=== PATIENT | male | born 1975 | race Caucasian/White ===

== ENCOUNTER 2022-03-06 08:00 | Outpatient (CLI) | payer OTHER ==
--- NOTE | 2022-03-06 11:00 | XRAY Report ---
PROCEDURE: Chest 2 View X-Ray INDICATIONS: ASTHMA EXACERBATION TECHNIQUE: 2 views of the chest. COMPARISON: None. FINDINGS: Surgical changes and devices: None. Lungs and pleura: No pleural effusions or pneumothorax. Lungs are mildly hyperexpanded and clear. Mediastinum: Mediastinal contours are normal. Heart size is normal. Bones and chest wall: No suspicious bony abnormalities. Soft tissues appear unremarkable. IMPRESSION: Lungs are mildly hyperexpanded, which can be seen in the setting of reactive airways dis ease. No acute consolidation.. Reviewed by: Severiano Harris MD on 03/06/2022 9:59 AM REED Approved by: Severiano Harris MD on 03/06/2022 9:59 AM REED Station ID: [id number]
== END 2022-03-06 08:01 | disposition home or self-care (01) ==
LOC: DI.S 08:00
PROVIDERS: ATTEND Emergency Medicine
DX: J45.901 Unspecified asthma with (acute) exacerbation (principal)